=== PATIENT | female | born 1965 | race Caucasian/White ===

== ENCOUNTER 2016-11-24 13:04 | Observation (INO) | payer OTHER ==
[2016-11-24] MEDS ORDERED: PRILOSEC OTC20 M1 PO (13:23)
[2016-11-24 13:43] LABS: EOSINOPHIL ABSOLUTE COUNT 0.1 tho/cmm (0.0-0.7); LYMPH ABSOLUTE COUNT 1.9 tho/cmm (0.8-4.5); MONOCYTE ABSOLUTE COUNT 0.6 tho/cmm (0.0-1.2); NEUTROPHILS % 64.3 % (40-80); WHITE BLOOD COUNT 7.2 tho/cmm (4.0-10.0)
[2016-11-24 13:45] LABS: INR 1.1 INR (0.9-1.1); PROTHROMBIN TIME 12.9 SECONDS (9.0-13.6)
[2016-11-24 13:59] LABS: ALBUMIN 3.6 g/dl (3.5-5.0); ALKALINE PHOSPHATASE 74 U/L (33-138); ALT/SGPT 21 U/L (12-78); ANION GAP 13 mmol/L (0-20); AST/SGOT 10 U/L (10-40); BILIRUBIN,TOTAL 0.2 mg/dl (0-1.5); BLOOD UREA NITROGEN 14 mg/dl (6-24); CALCIUM 8.4 mg/dl (8.5-10.5); CARBON DIOXIDE-VENOUS 26 mmol/L (22-32); CHLORIDE 109 mmol/l (96-110); CREATININE 0.93 mg/dl (0.50-1.10); GLUCOSE 92 mg/dL (70-110); MAGNESIUM 2.3 mg/dl (1.3-2.6); POTASSIUM 3.7 mmol/L (3.7-5.1); SODIUM 144 mmol/L (135-145); eGFR VALUE FOR BLACK 83 mL/Min
[2016-11-24 14:24] LABS: ESR-ERYTHROCYTE SED RATE 24 mm/hr (0-30)
[2016-11-24 14:58] LABS: BASO % 0.3 % (0-2); EOS % 1.1 % (0-7); HCT-HEMATOCRIT 35.3 % (34.0-49.0); HGB-HEMOGLOBIN 11.3 gm/dl (12.0-15.5); LYMPH % 26.5 % (20-45); MCH (MEAN CORPUSCULAR HGB) 25.7 pg (28.0-32.0); MCV (MEAN CELL VOLUME) 80.2 fl (82.0-96.0); MEAN PLATELET VOLUME 11.4 cmc (9.4-12.4); MONO % 7.8 % (0-12); NEUTROPHIL ABSOLUTE COUNT 4.6 tho/cmm (1.6-8.0); NEUTROPHIL-AUTOMATED 4.6 tho/cmm (1.6-8.0); PLATELET COUNT 289 tho/cmm (150-450); RED CELL DISTRIBUTION WIDTH 13.2 % (12.4-16.4)
[2016-11-24] MEDS ORDERED: ALEVE220 M3 PO (17:05)
[2016-11-24 17:26] LABS: TSH-THYROID STIMULATING HORM. 3.12 uIU/ml (0.40-3.80)
[2016-11-25 06:00] LABS: BASO % 0.3 % (0-2); EOSINOPHIL ABSOLUTE COUNT 0.1 tho/cmm (0.0-0.7); HCT-HEMATOCRIT 35.9 % (34.0-49.0); HGB-HEMOGLOBIN 11.4 gm/dl (12.0-15.5); IMMATURE GRANULOCYTES ABSOLUTE 0.01 tho/cmm (0-0.03); IMMATURE GRANULOCYTES PERCENT 0.1 % (0-0.3); LYMPH % 22.1 % (20-45); LYMPH ABSOLUTE COUNT 1.6 tho/cmm (0.8-4.5); MCH (MEAN CORPUSCULAR HGB) 25.6 pg (28.0-32.0); MCHC MEAN CORPUSCULAR HGB CONC 31.8 % (32.0-36.0); MCV (MEAN CELL VOLUME) 80.5 fl (82.0-96.0); MEAN PLATELET VOLUME 10.9 cmc (9.4-12.4); MONO % 7.1 % (0-12); MONOCYTE ABSOLUTE COUNT 0.5 tho/cmm (0.0-1.2); NEUTROPHILS % 69.4 % (40-80); PLATELET COUNT 252 tho/cmm (150-450); RED BLOOD COUNT 4.46 mil/cmm (4.00-5.20); RED CELL DISTRIBUTION WIDTH 13.3 % (12.4-16.4); WHITE BLOOD COUNT 7.2 tho/cmm (4.0-10.0)
[2016-11-25 06:17] LABS: ANION GAP 12 mmol/L (0-20); BLOOD UREA NITROGEN 13 mg/dl (6-24); CALCIUM 8.1 mg/dl (8.5-10.5); CARBON DIOXIDE-VENOUS 25 mmol/L (22-32); CHLORIDE 110 mmol/l (96-110); CHOLESTEROL 161 mg/dl (120-200); CREATININE 0.81 mg/dl (0.50-1.10); GLUCOSE 101 mg/dL (70-110); HDL CHOLESTEROL 47 mg/dl (40-60); LDL CHOLESTEROL 99 mg/dl (0-99); POTASSIUM 3.8 mmol/L (3.7-5.1); SODIUM 143 mmol/L (135-145); TRIGLYCERIDES 79 mg/dl (<149); VLDL 16 mg/dl (0-30); eGFR VALUE FOR BLACK >90 mL/Min
[2016-11-25] MEDS ORDERED: PRINIVIL5 M1 PO (12:37)
[2016-11-25] MEDS ORDERED: ASPIRIN EC81 MG PO (12:38)
== END 2016-11-25 13:29 ==
LOC: EDMED 13:04 → EMR2 14:44 → 5EC 16:35
PROVIDERS: Emergency Medicine; ADMIT Hospitalist
DX: R47.01 Aphasia (principal); R07.89 Other chest pain; I10 Essential (primary) hypertension; K21.9 Gastro-esophageal reflux disease without esophagitis; R53.83 Other fatigue; M54.9 Dorsalgia, unspecified; G89.29 Other chronic pain; I65.23 Occlusion and stenosis of bilateral carotid arteries; Z79.899 Other long term (current) drug therapy; Z90.49 Acquired absence of other specified parts of digestive tract
CPT/HCPCS: A9577; G0378; G8978-GP-CI; G8979-GP-CI; G8980-GP-CI; J7030